=== PATIENT | female | born 1990 | race Caucasian/White ===

== ENCOUNTER 2020-08-28 08:45 | Outpatient (CLI) | payer OTHER | END 2020-08-28 23:59 | disposition home or self-care (01) | LOC: LAB.S 08:45 | PROVIDERS: ATTEND Emergency Medicine | DX: R11.0 Nausea (principal); Z20.822 Contact with and (suspected) exposure to COVID-19 ==

== ENCOUNTER 2020-11-22 17:47 | Emergency (ER) | payer OTHER ==
[2020-11-22 17:57] VITALS: BP 132/57
--- NOTE | 2020-11-22 18:30 | ED Physician Documentation ---
History of Present Illness - Stated complaint Stated Complaint: POST SHOT REACTION - Chief complaint Chief Complaint: General - History obtained from History obtained from: Patient - Additonal information Additional information: Had Covid (pfizer vaccine) vaccine 6 days ago with aches and nausea starting 5 days ago. Poor appetite. No vomiting. No abd pain. No fevers. Some chills.No diarrhea. Mild sore throat yesterday, now better. Review of Systems Ten Systems: 10 systems reviewed and negative Constitutional: reports: Chills. denies: Fever Throat: reports: Sore throat GI: reports: Nausea. denies: Abdominal Pain, Vomiting, Diarrhea PD PAST MEDICAL HISTORY - Present Medications Home Medications: Ambulatory Orders Medication Instructions Recorded Confirmed Ondansetron Odt [Zofran] 4 mg TL Q6H PRN #10 tablet 11/22/20 - Allergies Allergies/Adverse Reactions: Allergies Allergy/AdvReac Type Severity Reaction Status Date / Time No Known Drug Allergies Allergy Verified 11/22/20 17:57 PD ED PE NORMAL - Vitals Vital signs reviewed: Yes - General General: Alert and oriented X 3, No acute distress - HEENT HEENT: PERRL, Ears normal, Pharynx benign, Dentition benign - Neck Neck: Supple, no meningeal sign, No bony TTP - Cardiac Cardiac: RRR, No murmur - Respiratory Respiratory: No respiratory distress, Clear bilaterally - Abdomen Abdomen: Normal bowel sounds, Soft, Non tender - Back Back: No CVA TTP, No spinal TTP - Derm Derm: Normal color, Warm and dry - Neuro Neuro: Alert and oriented X 3, Normal speech Results - Vitals Vitals: Vital Signs - 24 hr 11/22/20 17:54 Temperature 36.9 C Heart Rate 86 Respiratory 18 Rate Blood Pressure 132/57 H O2 Saturation 95 Oxygen O2 Source Room air PD MEDICAL DECISION MAKING - ED course ED course: 30-year-old woman with benign exam presents with nausea that is persistent after a vaccine 6 days ago. While this is definitely longer than the expected, nothing else on history or physical to give us cause. She says there is absolutely 100% no chance of . Will swab for Covid since she is not fully vaccinated but otherwise we will treat her nausea which is her prominent symptom. Departure - Departure Disposition: 01 Home, Self Care Clinical Impression: Nausea Condition: Good Record reviewed to determine appropriate education?: Yes Instructions: ED Nausea Vomiting Prescriptions: Ondansetron Odt [Zofran] 4 mg TL Q6H PRN #10 tablet PRN Reason: Nausea / Vomiting Comments: Call your doctor to arrange a follow-up appointment, make the next available appointment. In the interim, return anytime if worse or if new symptoms develop. You have a Covid test pending. You need to self quarantine until the result is done and negative. Do not leave your house. Do not get near anybody. The results should be done in 48 to 72 hours. We will call with a positive result, the fastest way to get a negative result for confirmation though is to go to the hospital website at [email or web address], click on the my [facility] tab and sign up for the patient portal. If any friends or family get sick and would like to have a Covid test done, but do not have signs or symptoms that would necessitate being hospitalized, we encourage testing through our coronavirus swabbing station, call [phone] to schedule an appointment. Forms: Activity restrictions
[2020-11-22] MEDS ORDERED: ONDANSETRON ODT 4 MG TABLET TL STA (18:36)
== END 2020-11-22 18:43 | disposition home or self-care (01) ==
LOC: ED 17:47
DX: R11.0 Nausea (principal); Z20.822 Contact with and (suspected) exposure to COVID-19
CPT/HCPCS: 87635; 99283; Q0162; 99284

== ENCOUNTER 2021-08-11 18:27 | Emergency (ER) | payer OTHER ==
[2021-08-11 18:35] VITALS: BP 127/87
--- NOTE | 2021-08-11 20:00 | ED Physician Documentation ---
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 No other injuries.) Review of Systems Constitutional: reports: Reviewed and negative Eyes: reports: Reviewed and negative Ears: reports: Reviewed and negative Throat: reports: Reviewed and negative Cardiac: reports: Reviewed and negative PD PAST MEDICAL HISTORY - Present Medications Home Medications: Ambulatory Orders Medication Instructions Recorded Confirmed Ondansetron Odt [Zofran] 4 mg TL Q6H PRN #10 tablet 11/22/20 - Allergies Allergies/Adverse Reactions: Allergies Allergy/AdvReac Type Severity Reaction Status Date / Time No Known Drug Allergies Allergy Verified 08/11/21 18:34 PD ED PE NORMAL - Vitals Vital signs reviewed: Yes - General General: Alert and oriented X 3, No acute distress - Extremities Extremities: Other (There is bruising over the anterior part of the right knee without bony tenderness, limited range of motion, ligamentous laxity, or pain with grind testing.) - Neuro Neuro: Alert and oriented X 3, Normal speech Results - Vitals Vitals: Vital Signs - 24 hr 08/11/21 18:32 Temperature 36.6 C Heart Rate 79 Respiratory 14 Rate Blood Pressure 127/87 H O2 Saturation 97 Oxygen O2 Source Room air - Rads (name of study) Knee XR 4v Radiology: EMP read contemporaneously (NAD) Departure - Departure Disposition: 01 Home, Self Care Clinical Impression: Knee injury Condition: Good Record reviewed to determine appropriate education?: Yes Instructions: ED Sprain Knee Comments: Ibuprofen as needed for pain, also we gave you 4 Vicodin to go, return if worse. Follow-up with your doctor later this week for recheck. Forms: Activity restrictions Discharge Date/Time: 08/11/21 20:44
[2021-08-11] MEDS ORDERED: HYDROcod/ACET 5/325 Prepack 4 PO STA (20:18)
--- NOTE | 2021-08-12 07:25 | XRAY Report ---
PROCEDURE: Knee 4 View BILAT INDICATIONS: Trauma. Pain. TECHNIQUE: 5 views of both knee(s) were acquired. COMPARISON: None. FINDINGS: Bones: No fractures or dislocations. No suspicious bony lesions. Soft tissues: No definite joint effusion. No suspicious soft tissue calcifications. IMPRESSION: No acute osseous abnormality. Reviewed by: Kt Ritter MD on 08/11/2021 7:59 PM PDT Approved by: Kt Ritter MD on 08/11/2021 7:59 PM PDT Station ID: [id number]
== END 2021-08-11 20:44 | disposition home or self-care (01) ==
LOC: ED 18:27
DX: S89.91XA Unspecified injury of right lower leg, initial encounter (principal); W19.XXXA Unspecified fall, initial encounter; Y92.139 Unspecified place military base as the place of occurrence of the external cause; Y99.1 Military activity
CPT/HCPCS: 99282; 99283

== ENCOUNTER 2021-10-24 17:24 | Emergency (ER) | payer OTHER ==
[2021-10-24] MEDS ORDERED: LORazepam 1 MG TABLET PO STA (19:13)
--- NOTE | 2021-10-24 19:15 | ED Physician Documentation ---
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 She is preparing for deployment and that is causing her a lot of stress related to her work and equipment at work not working. She has always had some level of anxiety and panic attacks but that is been worse especially today with 3 episodes of what she describes as panic attacks where she feels like she has to scream and cannot think straight and is associated with chest pressure, mid substernal. There is no shortness of breath with it. She is not short of it does not get worse with physical exertion. She denies pedal edema or calf pain. Not on control. No possibility of . Review of Systems Constitutional: denies: Fever, Chills Nose: denies: Rhinorrhea / runny nose, Congestion Throat: denies: Dental pain / toothache, Sore throat Cardiac: denies: Palpitations, Pedal edema, Calf pain Respiratory: denies: Dyspnea, Cough PD PAST MEDICAL HISTORY - Present Medications Home Medications: Ambulatory Orders Medication Instructions Recorded Confirmed Ondansetron Odt [Zofran] 4 mg TL Q6H PRN #10 tablet 11/22/20 Ibuprofen [Motrin] 800 mg PO Q8H PRN #20 tablet 09/16/21 LORazepam [Ativan] 1 mg PO TID PRN #12 tablet 10/24/21 - Allergies Allergies/Adverse Reactions: Allergies Allergy/AdvReac Type Severity Reaction Status Date / Time No Known Drug Allergies Allergy Verified 10/24/21 17:34 PD ED PE NORMAL - Vitals Vital signs reviewed: Yes - General General: Alert and oriented X 3, No acute distress - HEENT HEENT: PERRL, EOMI - Neck Neck: Supple, no meningeal sign, No bony TTP - Cardiac Cardiac: RRR, No murmur - Respiratory Respiratory: No respiratory distress, Clear bilaterally - Abdomen Abdomen: Normal bowel sounds, Soft, Non tender - Back Back: No CVA TTP, No spinal TTP - Derm Derm: Normal color, Warm and dry - Extremities Extremities: No edema, No calf tenderness / cord - Neuro Neuro: Alert and oriented X 3, Normal speech Results - Vitals Vitals: Vital Signs - 24 hr 10/24/21 17:30 Temperature 36.6 C Heart Rate 96 Respiratory 16 Rate Blood Pressure 119/101 H O2 Saturation 98 Oxygen O2 Source Room air - EKG (time done) 1735 Rate: Rate (enter#) (93) Rhythm: NSR Martin: Normal Intervals: Normal [place] QRS: Normal Ischemia: Normal ST segments PD MEDICAL DECISION MAKING - ED course ED course: 31-year-old woman presents with chest pain associated with panic attacks. History and physical do not suggest a more sinister cause, there is no exertional component. She is PERC negative. EKG is unremarkable. 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 Discussed that this is probably not a long-term solution but would get her through until follow-up. Departure - Departure Disposition: Home, Self Care Clinical Impression: Anxiety Condition: Good Record reviewed to determine appropriate education?: Yes Instructions: ED Panic Attack Prescriptions: LORazepam [Ativan] 1 mg PO TID PRN #12 tablet PRN Reason: Anxiety Comments: I sent prescription electronically to [facility] in [place]. Follow-up with your flight surgeon on Wednesday for further evaluation and treatment. Return for new or worsening symptoms. Do not drink or drive while taking prescription antianxiety medicine. Forms: Activity restrictions
[2021-10-24 19:33] VITALS: BP 123/76
== END 2021-10-24 19:32 | disposition home or self-care (01) ==
LOC: ED 17:24
DX: F41.9 Anxiety disorder, unspecified (principal)
CPT/HCPCS: 93005; 99283; 99284; J8499

== ENCOUNTER 2022-06-20 23:21 | Emergency (ER) | payer OTHER ==
[2022-06-20 23:29] VITALS: BP 130/80
[2022-06-20] MEDS ORDERED: AMOX/CLAV 875 MG/125 MG TABLET PO STA (23:32)
[2022-06-20] MEDS ORDERED: TETANUS/DIPHTHERIA/PERTUSSIS 0.5 ML SYRINGE IM ONE (23:32)
--- NOTE | 2022-06-20 23:40 | ED Physician Documentation ---
PD HPI UPPER EXT INJURY - Stated complaint Stated Complaint: CAT BITE - Chief complaint Chief Complaint: Wound - History obtained from History obtained from: Patient - Additonal information Additional information: Patient is a 32-year-old female presenting for evaluation of cat bite to the left hand that occurred this evening. Patient has a friend staying with her whose cat has scratched and bit both of them due to being in a new environment. Patient is unsure of her last tetanus. She is not diabetic and does not take a blood thinner.She is unsure of cats immunization status. Review of Systems Constitutional: denies: Fever Cardiac: denies: Chest pain / pressure Respiratory: denies: Dyspnea GI: denies: Abdominal Pain Skin: reports: Laceration (s) PD PAST MEDICAL HISTORY - Present Medications Home Medications: Ambulatory Orders Medication Instructions Recorded Confirmed Ondansetron Odt [Zofran] 4 mg TL Q6H PRN #10 tablet 11/22/20 Ibuprofen [Motrin] 800 mg PO Q8H PRN #20 tablet 09/16/21 LORazepam [Ativan] 1 mg PO TID PRN #12 tablet 10/24/21 Amox/Clav 875/125 [Augmentin] 1 each PO Q12H #14 tablet 06/20/22 - Allergies Allergies/Adverse Reactions: Allergies Allergy/AdvReac Type Severity Reaction Status Date / Time No Known Drug Allergies Allergy Verified 06/20/22 23:26 PD ED PE NORMAL - General General: Alert and oriented X 3, No acute distress, Well developed/nourished - HEENT HEENT: Atraumatic - Neck Neck: Supple, no meningeal sign - Cardiac Cardiac: Strong equal pulses - Respiratory Respiratory: No respiratory distress - Derm Derm: No rash - Extremities Extremities: Other (2 small superficial wounds to dorsum of left hand, no surrounding erythema, swelling or tenderness, normal range of motion; Motor and sensation are intact) Results - Vitals Vitals: Vital Signs - 24 hr 06/20/22 23:26 Temperature 36.5 C Heart Rate 90 Respiratory 16 Rate Blood Pressure 130/80 O2 Saturation 99 Oxygen O2 Source Room air PD Medical Decision Making - ED course ED course: Patient with superficial cat bites to dorsum of her left hand. No current signs for infection. No signs of tendon injury. We did update her tetanus. I started her on Augmentin. Patient is counseled on treatment plan to for antibiotic prophylaxis as well as continued wound care. She is advised on concerning symptoms to return for. Departure - Departure Disposition: 01 Home, Self Care Clinical Impression: Cat bite of left hand Condition: Stable Instructions: ED Bite Animal General Prescriptions: Amox/Clav 875/125 [Augmentin] 1 each PO Q12H #14 tablet Comments: Please continue to keep your wounds clean and dry. I am sending a prescription for an antibiotic to [facility] in [place]. Please make sure to complete the course of the antibiotics. Return to the emergency department with any worsening symptoms such as signs of infection. You were also given a tetanus booster today. Discharge Date/Time: 06/20/22 23:50
== END 2022-06-20 23:50 | disposition home or self-care (01) ==
LOC: ED 23:21
DX: S61.452A Open bite of left hand, initial encounter (principal); W55.01XA Bitten by cat, initial encounter; Z23 Encounter for immunization; Z71.85 Encounter for immunization safety counseling
CPT/HCPCS: 90471; 90715; 99281; 99283; A9270

== ENCOUNTER 2022-07-13 18:53 | Emergency (ER) | payer OTHER ==
--- NOTE | 2022-07-13 20:13 | ED Physician Documentation ---
History of Present Illness - Stated complaint Stated Complaint: L ARM RASH - Chief complaint Chief Complaint: Allergic Rx - History obtained from History obtained from: Patient - Additonal information Additional information: HPI from patient. Patient was stung by what she thinks is a wasp 2 days ago; stung to her left upper arm. At that time, she did not appreciate a stinger. At the time she was stung, she did notice some focal redness and swelling. She presents at this time to the emergency department because the area of the swelling and redness has steadily spread to involve a larger area of the posterior aspect of her left upper arm. Denies fever. Has not had reactions to bites nor stings in the past. She denies chest tightness, shortness of breath, lip/tongue/throat swelling/constriction. Review of Systems Constitutional: denies: Fever Skin: reports: Rash PD PAST MEDICAL HISTORY - Past Medical History Past Medical History: Yes Psych: Anxiety - Present Medications Home Medications: Ambulatory Orders Medication Instructions Recorded Confirmed Doxycycline [Vibramycin] 100 mg PO BID #13 tablet 07/13/22 Venlafaxine HCl 75 mg PO DAILY 07/13/22 07/13/22 predniSONE [Deltasone] 40 mg PO DAILY 3 Days #6 tablet 07/13/22 - Allergies Allergies/Adverse Reactions: Allergies Allergy/AdvReac Type Severity Reaction Status Date / Time No Known Drug Allergies Allergy Verified 07/13/22 19:05 PD ED PE NORMAL - Vitals Vital signs reviewed: Yes - General General: Alert and oriented X 3, No acute distress - HEENT HEENT: Moist mucous membranes, Other (no alize/intraoral swelling) PD ED PE EXPANDED - Extremities POLLY UE/Hands Visual: 1 - rash (confluent erythema without fluctuance nor crepitus. mild heat to touch. no stinger visualized), swelling Results - Vitals Vitals: Vital Signs - 24 hr 07/13/22 07/13/22 19:05 20:42 Temperature 36.8 C Heart Rate 80 75 Respiratory 16 18 Rate Blood Pressure 133/75 H 141/76 H O2 Saturation 99 100 Oxygen O2 Source Room air PD Medical Decision Making - ED course Complexity details: considered differential, d/w patient ED course: Patient presents 2 days after being stung by a bee or wasp to her left arm. Because it is approximately 2 days out, the possibility of cellulitis is raised, and thus she is given doxycycline with a prescription for same. To treat what is probably solely A large local reaction, she is given p.o. Benadryl as well as 40 mg p.o. prednisone. A prescription for 3 more days of daily prednisone is also electronically prescribed. Return precautions discussed. Departure - Departure Disposition: 01 Home, Self Care Clinical Impression: Local reaction to bee sting Qualifiers: Encounter type: initial encounter Injury intent: accidental or unintentional Qualified Code(s): T63.441A - Toxic effect of venom of bees, accidental (unintentional), initial encounter Condition: Good Instructions: ED Allergic Reaction Local Other Prescriptions: predniSONE [Deltasone] 40 mg PO DAILY 3 Days #6 tablet Doxycycline [Vibramycin] 100 mg PO BID #13 tablet Comments: Appear to be having a large localized reaction to the bee sting. For this, you are given a dose of Benadryl in the emergency department and you can take Benadryl according to [id number] label instructions as needed until the rash has adequately improved. You are also given a dose of steroid (prednisone) in the emergency department; as we discussed, this is for its anti-inflammatory properties which can help with these larger localized reactions to stings. Lastly, because the sting happened 2 days ago, the possibility of the area now developing a skin infection (cellulitis) is a possibility, and for this you are given a dose of an antibiotic (doxycycline) in the emergency department. I have electronically submitted prescriptions for 3 more days of the steroid as well as a 1 week course of the antibiotic to the [facility] pharmacy in [place]. Discharge Date/Time: 07/13/22 20:46
[2022-07-13] MEDS ORDERED: diphenhydrAMINE 25 MG CAPSULE PO STA (20:32)
[2022-07-13] MEDS ORDERED: DOXYCYCLINE 100 MG TABLET PO STA (20:32)
[2022-07-13] MEDS ORDERED: predniSONE 20 MG TABLET PO STA (20:33)
[2022-07-13 20:43] VITALS: BP 141/76
== END 2022-07-13 20:46 | disposition home or self-care (01) ==
LOC: ED 18:53
DX: R21 Rash and other nonspecific skin eruption (principal); T63.441A Toxic effect of venom of bees, accidental (unintentional), initial encounter
CPT/HCPCS: 99282; 99283; A9270; J7512

== ENCOUNTER 2022-07-27 17:48 | Emergency (ER) | payer OTHER ==
[2022-07-27 18:09] VITALS: BP 128/78
[2022-07-27] MEDS ORDERED: MELOXICAM 7.5 MG TABLET PO STA (18:45)
--- NOTE | 2022-07-27 18:53 | ED Physician Documentation ---
History of Present Illness - Stated complaint Stated Complaint: BILAT ANKLE PX - Chief complaint Chief Complaint: Trauma Ext - History obtained from History obtained from: Patient, Family - History of Present Illness Timing: How many days ago (3) Pain level max: 7 Pain level now: 7 - Additonal information Additional information: Patient is a 32-year-old female who presents to the emergency department with bilateral ankle pain. She states that she did an obstacle course this weekend and after the obstacle course her ankles began to hurt, they have gradually worsened since that time. She states the obstacle course was about 2 hours long and 4 miles. She states it was much more strenuous and she thought it was going to be. She has taken Tylenol without relief. She placed her ankles into Velcro braces but is still having pain with walking. 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 Patient denies any possibility of . Review of Systems Constitutional: denies: Fever, Chills GI: denies: Vomiting, Diarrhea : denies: Now EGA PD PAST MEDICAL HISTORY - Past Medical History Past Medical History: Yes Psych: Anxiety - Present Medications Home Medications: Ambulatory Orders Medication Instructions Recorded Confirmed Doxycycline [Vibramycin] 100 mg PO BID #13 tablet 07/13/22 Venlafaxine HCl 75 mg PO DAILY 07/13/22 07/13/22 predniSONE [Deltasone] 40 mg PO DAILY 3 Days #6 tablet 07/13/22 - Allergies Allergies/Adverse Reactions: Allergies Allergy/AdvReac Type Severity Reaction Status Date / Time No Known Drug Allergies Allergy Verified 07/27/22 18:07 PD ED PE NORMAL - Vitals Vital signs reviewed: Yes - General General: Alert and oriented X 3, No acute distress - HEENT HEENT: Moist mucous membranes - Derm Derm: Warm and dry - Extremities Extremities: Other (Bilateral ankles - Minimal tenderness over the lateral malleoli of both ankles. No significant swelling. Neurovascular intact. Otherwise normal examination of the bilateral lower extremities including tib- fib and feet. no bony tenderness.) - Neuro Neuro: Alert and oriented X 3 - Psych Psych: Normal mood, Normal affect Results - Vitals Vitals: Vital Signs - 24 hr 07/27/22 18:04 Temperature 36.4 C L Heart Rate 76 Respiratory 16 Rate Blood Pressure 128/78 O2 Saturation 100 Oxygen O2 Source Room air - Rads (name of study) Bilateral ankle x-ray Relevant Findings:: Final report received, See rad report PD Medical Decision Making - ED course Complexity details: reviewed results, re-evaluated patient, considered differential, d/w patient, d/w family ED course: No acute findings on x-ray. Placed in bilateral gel splints for comfort. We will have her follow-up with her PCP for further care. She is given meloxicam here. Neurovascularly intact. No evidence of fracture or dislocation. Patient counseled regarding signs and symptoms for which I believe and urgent re- evaluation would be necessary. Patient with good understanding of and agreement to plan and is comfortable going home at this time This document was made in part using voice recognition software. While efforts are made to proofread this document, sound alike and grammatical errors may occur. Departure - Departure Disposition: 01 Home, Self Care Clinical Impression: Strain of ankle Qualifiers: Encounter type: initial encounter Laterality: unspecified laterality Qualified Code(s): S96.919A - Strain of unspecified muscle and tendon at ankle and foot level, unspecified foot, initial encounter Condition: Good Instructions: ED Sprain Ankle Follow-Up: MA[facility] Harley [Provider Group] - Within 1 week Comments: You can continue Motrin and Tylenol as needed for pain. Your x-rays do not show any acute abnormalities today. Please follow-up with your doctor for further care. Please return if you worsen. Forms: Activity restrictions Discharge Date/Time: 07/27/22 20:58
--- NOTE | 2022-07-27 20:10 | XRAY Report ---
PROCEDURE: Ankle 3 View BILAT INDICATIONS: B ankle pain s/p obstacle course TECHNIQUE: 3 views of each ankle were acquired. COMPARISON: None. FINDINGS: Bones: No fractures or dislocations. Ankle mortise is normally aligned. No suspicious bony lesions . Soft tissues: No tibiotalar joint effusion. Achilles tendon appears normal. IMPRESSION: 1. No acute bony abnormality. Reviewed by: Ulysses Lam MD on 07/27/2022 8:09 PM PDT Approved by: Ulysses Lam MD on 07/27/2022 8:09 PM PDT Station ID: [id number]
== END 2022-07-27 20:58 | disposition home or self-care (01) ==
LOC: ED 17:48
DX: S96.912A Strain of unspecified muscle and tendon at ankle and foot level, left foot, initial encounter (principal); S96.911A Strain of unspecified muscle and tendon at ankle and foot level, right foot, initial encounter; X58.XXXA Exposure to other specified factors, initial encounter
CPT/HCPCS: 73610; 99283; A9270

== ENCOUNTER 2022-09-08 05:32 | Emergency (ER) | payer OTHER ==
--- NOTE | 2022-09-08 06:01 | ED Physician Documentation ---
History of Present Illness - Stated complaint Stated Complaint: L KNEE/BACK PX - Chief complaint Chief Complaint: Back Pain - History obtained from History obtained from: Patient, Family - Additonal information Additional information: The patient is brought to the emergency department by her mom for chief complaint of low back pain for 3 days and left knee pain that she noticed when she woke up less than an hour ago. The patient does not give a very good history initially and her mother states "she is not awake" as a reason for poor provision of details. The patient finally states that she did not have any injury to either her back or her left knee. In fact, she has had knee problems for many years and has seen a specialist for this. She states that "nobody can figure out why I have flareups". The patient did not try any medication or other relief measures at home, such as ice packs, because she states she had not had time since she just woke up. The patient denies any numbness or tingling in her lower extremities. No loss of bowel or bladder function. The patient denies urinary symptoms. PD PAST MEDICAL HISTORY - Past Medical History Psych: Anxiety - Present Medications Home Medications: Ambulatory Orders Medication Instructions Recorded Confirmed Doxycycline [Vibramycin] 100 mg PO BID #13 tablet 07/13/22 Venlafaxine HCl 75 mg PO DAILY 07/13/22 07/13/22 predniSONE [Deltasone] 40 mg PO DAILY 3 Days #6 tablet 07/13/22 - Allergies Allergies/Adverse Reactions: Allergies Allergy/AdvReac Type Severity Reaction Status Date / Time No Known Drug Allergies Allergy Verified 09/08/22 05:41 PD ED PE NORMAL - Vitals Vital signs reviewed: Yes - General General: Alert and oriented X 3, No acute distress, Well developed/nourished, Other (Morbidly obese) - HEENT HEENT: Atraumatic, PERRL, EOMI, Moist mucous membranes - Neck Neck: Supple, no meningeal sign - Respiratory Respiratory: No respiratory distress - Back Back: No spinal TTP - Derm Derm: Normal color, Warm and dry, No rash - Extremities Extremities: No deformity, No edema - Neuro Neuro: Alert and oriented X 3, origination specialist 2-12 intact, Normal speech, Other (No gross deficits.) - Psych Psych: Normal mood, Normal affect Results - Vitals Vitals: Vital Signs - 24 hr 09/08/22 09/08/22 05:38 06:04 Temperature 36.1 C L Heart Rate 87 81 Respiratory 18 16 Rate Blood Pressure 126/77 129/85 H O2 Saturation 97 99 Oxygen O2 Source Room air PD Medical Decision Making - ED course Complexity details: considered differential, d/w patient, d/w family ED course: I had a teo discussion with the patient and her mother that these complaints simply are not emergent. The patient has had no injury and has chronic knee problems that have been going on for years. The mother states since nobody can tell the patient why she has knee problems, she decided to bring her here to our department instead. I discussed with her that I have no idea why the patient's knee is hurting this morning. In the absence of any other more defining symptoms or historical factors, there is no possible way I can determine why her knee hurts this morning when it did not hurt yesterday evening. Additionally, the patient has had no distinct injury to her back, and other than to note the obvious strain from the patient's morbid obesity, I cannot make any sort of comment as to how the patient may have irritated her back. The patient has no urinary symptoms and I do not feel that the urine is the likely reason for the patient's back pain. We have discussed that there is no indication here for emergent MRI, besides which we do not even have MRI right now as it is overnight. We have discussed the need for follow-up in primary care and appropriate indications for return to the emergency department. Departure - Departure Disposition: 01 Home, Self Care Clinical Impression: Back pain Qualifiers: Back pain location: low back pain Chronicity: acute Back pain laterality: bilateral Sciatica presence: without sciatica Qualified Code(s): M54.50 - Low back pain, unspecified Knee pain, left Qualifiers: Chronicity: chronic Qualified Code(s): M25.562 - Pain in left knee Condition: Stable Instructions: ED Chronic Pain Management Comments: There is no clear cause as far as a specific diagnosis for either your back pain or your knee pain. You have not had a specific injury to raise concern for a fracture, nor did you have an acute event that you can point to as the cause for any other sort of acute trauma. It is possible that you have some sort of chronic injury to your back involving the discs or other structures but that is not an emergency today. You do not have any evidence of spinal cord compromise which would elevate your pain to the level of an emergency. Additionally, as far as her knees are concerned, you have chronic knee problems that date back years and has been seeing a specialist for this. I am not clear exactly why you have had a flareup today, but since she just noticed it when he got out of bed right before coming to the ED, and since you have had no distinct injury to your knee either, there is absolutely no way to determine why your knee may be flaring up. It is possible that it has something to do with the recent weather change, though there is no way to verify this. What can be said with certainty is that neither of these problems are an emergency today, and as such, there is no emergent testing or intervention to be done. You will need to follow-up with your primary doctor and your knee specialist for further evaluation. Please work with your doctor on a weight loss program as this will decrease the stress on all of your joints. You may use ice, heat, ibuprofen, and Tylenol to help with the discomfort. You may talk to your primary doctor about MRI and whether here she thinks this would be a good next step in evaluating either of these areas of your body. Discharge Date/Time: 09/08/22 06:05
[2022-09-08 06:05] VITALS: BP 129/85
== END 2022-09-08 06:05 | disposition home or self-care (01) ==
LOC: ED 05:32
DX: M54.50 Low back pain, unspecified (principal); M25.562 Pain in left knee; Z79.899 Other long term (current) drug therapy
CPT/HCPCS: 99281; 99283

== ENCOUNTER 2022-11-28 19:52 | Emergency (ER) | payer OTHER ==
--- OUTSIDE RECORDS SUMMARY | 2022-11-28 20:51 | EXTERNAL MEDICAL SUMMARY RPT | Continuity of Care Document ---
Author Name Unknown Address [address] [id number] Phone Organization [facility] Address [address] [place] [address] Phone Problems date description facility 2022-10-06 16:22 Other tear of medial meniscus, current injury, left knee, in [facility] Social History date description facility
[2022-11-28 22:02] LABS: BASOPHILS % (AUTO) 0.5 %; EOSINOPHILS # (AUTO) 0.1 10^3/uL (0.0-0.7); EOSINOPHILS % (AUTO) 1.5 %; HCT - HEMATOCRIT 43.2 % (37.0-47.0); HGB - HEMOGLOBIN 13.4 g/dL (12.0-16.0); LYMPHOCYTES # (AUTO) 2.8 10^3/uL (1.5-3.5); LYMPHOCYTES % (AUTO) 38.4 %; MEAN CORPUSCULAR HEMOGLOBIN 26.2 pg (27.0-31.0); MEAN CORPUSCULAR VOLUME 84.4 fL (81.0-99.0); MEAN PLATELET VOLUME 11.8 fL (7.9-10.8); MONOCYTES # (AUTO) 0.5 10^3/uL (0.0-1.0); MONOCYTES % (AUTO) 6.6 %; NEUTROPHILS # (AUTO) 3.9 10^3/uL (1.5-6.6); NEUTROPHILS % (AUTO) 52.9 %; PLT - PLATELET COUNT 293 10^3/uL (130-450); RED BLOOD COUNT 5.12 10^6/uL (4.20-5.40); RED CELL DISTRIBUTION WIDTH 13.8 % (12.0-15.0); WHITE BLOOD COUNT 7.3 x10^3/uL (4.8-10.8)
[2022-11-28 22:19] LABS: ALBUMIN 4.4 g/dL (3.2-5.5); ALBUMIN/GLOBULIN RATIO 1.8 (1.0-2.2); BILIRUBIN,TOTAL 0.2 mg/dL (0.2-1.0); CALCIUM 9.2 mg/dL (8.5-10.3); CREATININE 0.7 mg/dL (0.6-1.3); POTASSIUM 3.7 mmol/L (3.5-4.5); TOTAL PROTEIN 6.9 g/dL (6.4-8.9)
[2022-11-28] MEDS ORDERED: ONDANSETRON ODT 4 MG TABLET TL STA (23:20)
[2022-11-29 00:21] LABS: BILIRUBIN,URINE NEGATIVE (NEGATIVE); GLUCOSE, URINE (UA) NEGATIVE (NEGATIVE); KETONES,URINE (UA) NEGATIVE (NEGATIVE); LEUKOCYTE ESTERASE, URINE TRACE (NEGATIVE); NITRITE,URINE NEGATIVE (NEGATIVE); OCCULT BLOOD,URINE NEGATIVE (NEGATIVE); PH,URINE 5.5 PH (5.0-7.5); PROTEIN,URINE NEGATIVE (NEGATIVE); UROBILINOGEN,URINE 0.2 (NORMAL) E.U./dL (NORMAL)
[2022-11-29 00:25] LABS: CLARITY,URINE HAZY (CLEAR); HCG UR QUAL NEGATIVE
[2022-11-29 00:34] LABS: BACTERIA,URINE Many /HPF (None Seen); RBC,URINE 0-5 /HPF (0-5); SQUAMOUS EPITHELIAL CELL,UR MANY Squamous (<= Few); WBC,URINE >25 /HPF (0-5)
[2022-11-29] MEDS ORDERED: SODIUM CHLORIDE 0.9% 1,000 ML IV STA (00:36)
--- NOTE | 2022-11-29 01:45 | ED Physician Documentation ---
History of Present Illness - Stated complaint Stated Complaint: NAUSEA/WEAK/SHAKY - Chief complaint Chief Complaint: General - Additonal information Additional information: Patient is a 32-year-old female with no significant prior medical history presenting for evaluation of feeling nauseous, dizzy and weak for the past 2 days. Patient states that she had a headache yesterday which was not atypical for her. Denies it is the worst headache of her life. She states she went to sleep and slept for a prolonged amount of time until early this afternoon. She states that since being up she has felt dizzy with changing positions, particula rly standing and feels weak. She also reports associated nausea. She feels better when she lays down. She has difficulty describing the dizziness but denies that it feels vertiginous, room spinning or an imbalance. She no longer has a headache. She has been tolerating p.o. today. No chest pain, shortness of air, abdominal symptoms. Denies fever. Denies concern for . Review of Systems Constitutional: denies: Fever Cardiac: denies: Chest pain / pressure Respiratory: denies: Dyspnea GI: reports: Nausea. denies: Abdominal Pain : denies: Dysuria Musculoskeletal: denies: Back pain Neurologic: reports: Generalized weakness. denies: Syncope PD PAST MEDICAL HISTORY - Past Medical History Psych: Anxiety - Present Medications Home Medications: Ambulatory Orders Medication Instructions Recorded Confirmed Venlafaxine HCl 75 mg PO DAILY 07/13/22 11/10/22 Meclizine HCl [Motion Sickness] 25 mg PO Q6H PRN #20 tablet 11/10/22 Ondansetron Odt [Zofran] 4 mg TL Q6H PRN #10 tablet 11/29/22 - Allergies Allergies/Adverse Reactions: Allergies Allergy/AdvReac Type Severity Reaction Status Date / Time No Known Drug Allergies Allergy Verified 11/10/22 21:14 PD ED PE NORMAL - General General: Alert and oriented X 3, No acute distress, Well developed/nourished, Other (Playing on Clusterize) - HEENT HEENT: Atraumatic, PERRL, EOMI, Moist mucous membranes, Pharynx benign, Other (No nystagmus) - Neck Neck: Supple, no meningeal sign - Cardiac Cardiac: RRR, No murmur, Strong equal pulses - Respiratory Respiratory: No respiratory distress, Clear bilaterally - Abdomen Abdomen: Normal bowel sounds, Soft, Non tender, Non distended - Derm Derm: Warm and dry - Neuro Neuro: Alert and oriented X 3, social studies department chair 2-12 intact, No motor deficit, No sensory deficit, Normal speech Eye Opening: Spontaneous Motor: Obeys Commands Verbal: Oriented GCS Score: 15 Results - Vitals Vitals: Vital Signs - 24 hr 11/28/22 11/29/22 11/29/22 20:37 00:28 02:35 Temperature 37.2 C Heart Rate 92 82 Heart Rate [ 95 Sitting] Heart Rate [ 110 H Standing] Heart Rate [ 88 Supine] Respiratory 19 20 Rate Blood Pressure 139/66 H 146/129 H Blood Pressure 128/69 [Sitting] Blood Pressure 146/82 H [Standing] Blood Pressure 132/69 H [Supine] O2 Saturation 99 100 Oxygen O2 Source Room air - EKG (time done) 0135 EKG releavant findings:: EKG personally interpreted by author of this note. Relevant findings are: Rate 78, normal sinus rhythm, no STEMI, no ST depressions - Labs Labs: Laboratory Tests 11/28/22 11/28/22 11/28/22 21:57 21:57 23:30 WBC 7.3 RBC 5.12 Hgb 13.4 Hct 43.2 MCV 84.4 MCH 26.2 L MCHC 31.0 L RDW 13.8 Plt Count 293 MPV 11.8 H Neut # (Auto) 3.9 Lymph # (Auto) 2.8 [place] # (Auto) 0.5 Eos # (Auto) 0.1 Baso # (Auto) 0.0 Absolute Nucleated RBC 0.00 Nucleated RBC % 0.0 Sodium 137 Potassium 3.7 Chloride 107 Carbon Dioxide 24 Anion Gap 6.0 BUN 18 Creatinine 0.7 Estimated GFR (MDRD) 98 Glucose 89 Calcium 9.2 Total Bilirubin 0.2 AST 17 ALT 13 Alkaline Phosphatase 82 Total Protein 6.9 Albumin 4.4 Globulin 2.5 Albumin/Globulin Ratio 1.8 Urine Color YELLOW Urine Clarity HAZY Urine pH 5.5 Ur Specific [place] >=1.030 H Urine Protein NEGATIVE Urine Glucose (UA) NEGATIVE Urine Ketones NEGATIVE Urine Occult Blood NEGATIVE Urine Nitrite NEGATIVE Urine Bilirubin NEGATIVE Urine Urobilinogen 0.2 (NORMAL) Ur Leukocyte Esterase TRACE H Urine RBC 0-5 Urine WBC >25 H Ur Squamous Epith Cells MANY Squamous H Urine Bacteria Many H Ur Microscopic Review INDICATED Urine Culture Comments NOT INDICATED Urine HCG, Qual NEGATIVE PD Medical Decision Making - ED course Complexity details: reviewed results, re-evaluated patient, d/w patient ED course: Patient is a 32-year-old female presenting for evaluation of weakness. Vital signs are stable. Patient having difficulty describing her symptoms but states that it is worse with sitting and standing. With sitting it does get better after a minute or 2 but with standing it last longer. Normal neuro exam. Symptoms do not sound like vertigo and when I describe vertigo to the patient she denies that that is what she is feeling. CBC, chemistries were obtained while patient was in waiting room and without significant findings. UA is negative for . Orthostatics are positive. EKG is nonischemic. Patient feeling better after IV fluids and Zofran. She is ambulatory here. Patient counseled on continued supportive care as well as concerning symptoms to return for. No chest pain or shortness of air. Departure - Departure Disposition: 01 Home, Self Care Clinical Impression: Generalized weakness, Orthostatic dizziness Condition: Stable Instructions: ED Weakness [facility]O Prescriptions: Ondansetron Odt [Zofran] 4 mg TL Q6H PRN #10 tablet PRN Reason: Nausea / Vomiting Comments: You were evaluated for weakness and dizziness. Your EKG which checks your heart is normal. Your electrolytes are also normal. However your heart rate did elevate with standing so I am concerned for dehydration. You were given IV fluids. I also sent a prescription for an antinausea medication to [facility] in [place]. Please continue to stay hydrated and take caution when changing positions. Return to the emergency department with any worsening symptoms. Forms: PCP List Discharge Date/Time: 11/29/22 02:36
[2022-11-29 02:38] VITALS: BP 146/129; O2SAT 100
== END 2022-11-29 02:36 | disposition home or self-care (01) ==
LOC: ED 19:52
DX: R53.1 Weakness (principal); R42 Dizziness and giddiness
CPT/HCPCS: 36415; 80053; 81001; 81025; 85025; 93005; 99283; 99284; Q0162; 81003; 87086